=== PATIENT | female | born 1990 | race Caucasian/White ===

== ENCOUNTER 2017-05-29 21:24 | Emergency (ER) | payer OTHER ==
[~2017-05-29 21:24] MED LIST: SODIUM CHLORIDE 0.9% 1,000 ML BAG ONE
[2017-05-30] MEDS ORDERED: HYOSCYAMINE ELIXIR 250 MCG/10 ML BTL ONE (00:26)
[2017-05-30] MEDS ORDERED: MAG HYDROX/AL HYDROX/SIMETH 30 ML CUP ONE (00:26)
[2017-05-30] MEDS ORDERED: ONDANSETRON 4 MG/2 ML VIAL ONE (00:26)
[2017-05-30] MEDS ORDERED: PANTOPRAZOLE 40 MG/10 ML VIAL ONE (00:26)
[2017-05-30] MEDS ORDERED: KETOROLAC 30 MG/ML 1 ML VIAL ONE (00:26)
[2017-05-30] MEDS ORDERED: LIDOCAINE VISCOUS 2% 15 ML CUP ONE (00:26)
[2017-05-30] MEDS ORDERED: CIMETIDINE HCL 300 MG/5 ML ONE (00:26)
--- NOTE | 2017-05-30 16:16 | US ---
Exam: Ultrasound abdomen limited. HISTORY: Abdominal pain. TECHNIQUE: Grayscale and color flow ultrasonography was performed of the right upper quadrant. FINDINGS: Pancreas is unremarkable. The liver measures 15.4 cm in length. The gallbladder wall measures 5 mm. The common duct measures 3 mm. There is no pericholecystic fluid. Right kidney measures 11.2 x 3.8 x 4.3 cm. The gallbladder is mildly distended. There is some infolding of the gallbladder wall which is of doub tful significance. The liver is somewhat heterogeneous in echotexture. The intrahepatic inferior vena cava and abdominal aorta are unremarkable. IMPRESSION: No significant finding however the liver is slightly heterogeneous which could be due to hepatic stea tosis.
[2017-05-30 17:00] LABS: Basophils # (A) 0.1 k/uL (0-0.2); Basophils % (A) 1 %; Eosinophils # (A) 0.1 k/uL (0-0.7); Eosinophils % (A) 1 %; HCT 40.7 % (34.0-46.0); HGB 14.2 gm/dL (11.4-16.0); Lymphocytes # (A) 1.8 k/uL (1.0-4.8); Lymphocytes % (A) 17 %; MCH 31.6 pg (25.0-35.0); MCHC 34.9 g/dL (31.0-37.0); MCV 90.4 fL (80.0-100.0); Mean Platelet Volume 8.1; Monocytes # (A) 0.5 k/uL (0-1.0); Monocytes % (A) 4 %; Neutrophils % (A) 76 %; Platelet Count 220 k/uL (150-450); RDW 12.4 % (11.5-15.5); WBC 10.5 k/uL (3.8-10.6)
[2017-05-30 17:12] LABS: ALT 29 U/L (9-52); AST 25 U/L (14-36); Albumin 4.6 g/dL (3.5-5.0); Alkaline Phosphatase 56 U/L (38-126); Amylase 62 U/L (30-110); Anion Gap 13 mmol/L; Blood Urea Nitrogen 18 mg/dL (7-17); Calcium 9.7 mg/dL (8.4-10.2); Carbon Dioxide 27 mmol/L (22-30); Chloride 101 mmol/L (98-107); Glucose 106 mg/dL (74-99); Lipase 163 U/L (23-300); Potassium 4.4 mmol/L (3.5-5.1); Sodium 141 mmol/L (137-145); Total Bilirubin 0.4 mg/dL (0.2-1.3); Total Protein 7.8 g/dL (6.3-8.2)
[2017-05-30 17:13] LABS: Amorphous Sediment,Urine Moderate /hpf; Appearance,Urine Cloudy (Clear); Bilirubin,Urine Negative (Negative); Blood,Urine Negative (Negative); Color,Urine Yellow; Glucose,Urine (UA) Negative (Negative); Ketones,Urine Negative (Negative); Leukocyte Esterase,Urine Negative (Negative); Nitrite,Urine Negative (Negative); PH, Urine 7.5 (5.0-8.0); Protein,Urine Trace (Negative); Specific Gravity,Urine 1.024 (1.001-1.035); Squamous Epithelial Cell,Urine 11 /hpf (0-4); Urobilinogen,Urine <2.0 mg/dL (<2.0)
--- NOTE | 2017-06-02 23:43 | CDI ---
Documentation Clarification OP Dear CALEB Lu: Please do addendum of ED physician document. Thank you, Maria Teresa Lamb Wreath Maker If you have any question, Please contact manager of distribution at [phone] [facility]
== END 2017-05-30 04:00 | disposition home or self-care (01) ==
LOC: EC 21:24
DX: K29.70 Gastritis, unspecified, without bleeding (principal); F17.200 Nicotine dependence, unspecified, uncomplicated
CPT/HCPCS: 36415; 76705; 80053; 81001; 81025; 82150; 83690; 85025; 96361; 96374; 96375; 99284